=== PATIENT | female | born 1980 | race Caucasian/White ===

== ENCOUNTER 2016-07-14 08:29 | Inpatient (IN) | payer OTHER ==
[~2016-07-14] VITALS: Ht 167.6 cm; Wt 59.9 kg
[2016-07-14 08:30] VITALS: BP 114/71; PULSE 81; RESP 18; TEMP 98.9; O2SAT 98
--- NOTE | 2016-07-14 08:30 | NUR ---
BROUGHT BACK TO BED #6 AND REPORT GIVEN TO GRIFFIN
--- NOTE | 2016-07-14 08:30 | NUR ---
Pt report received from JENIFFER Schilling. 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 Pt unable to recall medical hx during triage. No focal neurodeficits noted at this time.
--- NOTE | 2016-07-14 08:35 | NUR ---
Dr. Richey at bedside to assess pt.
--- NOTE | 2016-07-14 09:00 | NUR ---
# 20 gauge angiocath placed to LAC. Use of asceptic technique. Opsite placed over site. Blood return noted. Blood for lab drawn from site. Flushed with 10 cc of normal saline. No evidence of infiltration noted. Patient tolerated well.
[2016-07-14 09:06] LABS: BASOPHILS % (AUTO) 0.4 % (0.0-2.0); EOSINOPHILS # (AUTO) 0.1 K/uL (0.0-0.4); EOSINOPHILS % (AUTO) 1.1 % (0.0-4.0); HEMATOCRIT 36.3 % (36-48); LYMPHOCYTES # (AUTO) 1.6 K/uL (1.0-5.5); LYMPHOCYTES % (AUTO) 28.7 % (20.5-51.5); MEAN CORPUSCULAR HEMOGLOBIN 30 pg (27-31); MEAN CORPUSCULAR HGB CONC 33 % (32-36); MEAN CORPUSCULAR VOLUME 90 fL (79.0-98.0); MONOCYTES # (AUTO) 0.4 K/uL (0.0-1.0); MONOCYTES % (AUTO) 7.2 % (1.7-9.3); NEUTROPHILS # (AUTO) 3.4 K/uL (1.8-7.7); NEUTROPHILS % (AUTO) 62.6 % (40.0-70.0); PLATELET COUNT (AUTO) 250 K/uL (130-430); RED BLOOD CELL COUNT(AUTO) 4.01 MIL/uL (4.2-6.2); RED CELL DISTRIBUTION WIDTH 11.7 % (9.0-15.0); WHITE BLOOD COUNT (AUTO) 5.5 K/uL (4.8-10.8)
--- NOTE | 2016-07-14 09:20 | NUR ---
Pt to CT via W/C.
[2016-07-14 09:23] LABS: CALCIUM 8.7 mg/dL (8.4-11.0); CREATININE 0.89 mg/dL (0.55-1.30); POTASSIUM 3.7 mmol/L (3.5-5.1)
[2016-07-14 09:26] LABS: INR 1.1 (0.8-1.2)
[2016-07-14 09:27] LABS: TOTAL BILIRUBIN 0.3 mg/dL (0.0-1.0)
--- NOTE | 2016-07-14 09:32 | NUR ---
Pt returns from CT.
[2016-07-14 09:36] LABS: BILIRUBIN,URINE NEGATIVE (NEGATIVE); BLOOD, URINE NEGATIVE (NEGATIVE); CLARITY/URINE CLEAR (CLEAR); COLOR,URINE YELLOW (YELLOW); GLUCOSE,URINE NEGATIVE (NEGATIVE); KETONES,URINE NEGATIVE (NEGATIVE); LEUKOCYTE ESTERASE ,URINE 1+ (NEGATIVE); NITRITE, URINE NEGATIVE (NEGATIVE); PH,URINE 5.5 (5.0-8.0); PROTEIN URINE NEGATIVE (NEGATIVE); UROBILINOGEN,URINE 0.2 (0.2-1.0)
[2016-07-14 09:49] LABS: BACTERIA,URINE RARE /HPF (None Seen); RBC,URINE NONE SEEN /HPF (0-3); WBC,URINE 0-3 /HPF (0-3)
--- NOTE | 2016-07-14 10:01 | NUR ---
No needs verbalized at this time. No neurodeficits noted at this time.
--- NOTE | 2016-07-14 10:25 | NUR ---
Patient will be admitted to care of Dr. Levine. Admitted to Tele unit. Will go to room 135. Belongings list completed. Summary report printed. Bedside report given to receiving RN.
--- NOTE | 2016-07-14 10:28 | NUR ---
Medication reconciliation completed with information provided by patient. Any prior medication reconciliation on file was reviewed and corrected. Pt takes no medications.
--- NOTE | 2016-07-14 10:34 | NUR ---
ADMIT NOTE Received pt from ER to the floor with a diagnosis of TIA. Admission process initiated. patient oriented to pain management, safety and call light-teach back done.
--- NOTE | 2016-07-14 10:35 | NUR ---
Notes Pt in bed awake, alert and oriented. speech clear, denies any pain, dizziness or headache at this time. ambulate with steady gait. denies any numbness or tingling. oriented to call light use and phone. safety precaution observed. v/s stable will monitor.
[2016-07-14 10:36] VITALS: BP 118/66; PULSE 68; RESP 18; TEMP 98.6; O2SAT 100
[2016-07-14 11:00] VITALS: BP 118/66; PULSE 68; RESP 17; TEMP 98.6; O2SAT 100
--- NOTE | 2016-07-14 12:23 | NUR ---
CONSULT CALLED CONSULT, SPOKE WITH ALEKSANDAR Fox Addendum: 07/14/16 at 1225 by Magdalena Elizondo CNA SPOKE WITH ALEKSANDAR AT 1220. REASON FOR CHF
--- NOTE | 2016-07-14 13:20 | NUR ---
notes eating lunch. neuro check done. no complains at this time.
--- NOTE | 2016-07-14 15:37 | NUR ---
notes in bed, family at bedside. no distress noted. neuro check done. stable. no deficits
[2016-07-14 16:00] VITALS: BP 93/62; PULSE 63; RESP 16; TEMP 97.3; O2SAT 98
--- NOTE | 2016-07-14 18:35 | NUR ---
NOTES IN bed eating dinner. denies any pain or discomfort. no neuro deficits noted. no distress. all needs meet. will endorse
[2016-07-14 19:30] VITALS: BP 98/57; PULSE 68; RESP 18; TEMP 98.8; O2SAT 98
--- NOTE | 2016-07-14 19:30 | NUR ---
Initial Notes Pt is A/Ox4, pleasant and cooperative. Pt denies any pain or sob at this time. No slurred speech noted. Bilateral upper and lower extremity strength is strong and even. Pt's smile is symmetrical. VSS. IV intact. Plan of care discussed with patient and pt verbalized understanding. Pt educated implementation analyst light and correct back demonstration noted. Pt was also given direct ext to reach nurse and how to use phone to call. Pt noted to be ambulatory with steady gait at this time. Pt encouraged to call nurse for assistance. All needs met. Call light in hand. Will continue to monitor.
--- NOTE | 2016-07-14 20:19 | NUR ---
PAGED: I PAGED PHY. ASSOCIATE [phone] I SPOKE WITH SCOT GORDON TOUR AGENT
--- NOTE | 2016-07-14 20:22 | NUR ---
Zain Pittman MD at this time. Pt requesting something for headache, and states that she has difficulty sleeping tonight. Will await call back.
--- NOTE | 2016-07-14 20:56 | NUR ---
PAGED: I PAGED PHY. ASSOCIATE [id number] [phone] I SPOKE WITH [facility]CHANGE THIS IS MY SECOND CALL 1ST CALL WAS @ 2018 DR. GORDON CALLED BACK @ 1902
[2016-07-14] MEDS ORDERED: ACETAMINOPHEN 325 MG TABLET PO PRN (21:15)
[2016-07-14] MEDS ORDERED: TEMAZEPAM 15 MG CAPSULE PO PRN (21:15)
--- NOTE | 2016-07-14 21:27 | NUR ---
Sleep Aid/Headache Pt c/o mild headache 05/30 and also requested a sleep aid, stating that she has difficulty sleeping at night when at home. Spoke with MD Levine earlier and new orders for Restoril and Tylenol ordered. Pt medicated with Restoril 15mg PO and Tylenol 650mg PO for pain as ordered. All needs met at this time. Fresh water provided. Call light in hand. Will continue to monitor.
--- NOTE | 2016-07-14 22:34 | NUR ---
Rounds Pt is sleeping at this time. Breathing is even and unlabored. No acute distress noted. Call light in reach. Will continue to monitor.
--- NOTE | 2016-07-15 00:30 | NUR ---
PATIENT RESTING: Patient resting quietly. No acute distress noted. Vital signs within normal range. Call light in hand. Will continue to monitor.
--- NOTE | 2016-07-15 01:52 | NUR ---
CONSULT: CONSULT CALLED FOR DR. SHETTY I SPOKE WITH MATTEO STORM REASON FOR CONSULT: TIA CONSULT ORDERED BY DR. GORDON NUMBER I CALLED [phone]
--- NOTE | 2016-07-15 01:55 | NUR ---
CONSULT: CONSULT CALLED FOR DR. BARKER I SPOKE WITH MATTEO STORM REASON FOR CONSULT: TIA REQUESTING DR. GORDON NUMBER I CALLED [phone]
--- NOTE | 2016-07-15 02:30 | NUR ---
Rounds Pt is sleeping comfortably at this time. No acute distress or sob noted. IV intact. All needs met at this time. Call light in reach. Will continue to monitor.
--- NOTE | 2016-07-15 05:13 | NUR ---
Rounds Patient is sleeping comfortably at this time. No acute distress noted. Call light in reach. Will continue to monitor.
--- NOTE | 2016-07-15 06:28 | NUR ---
Closing Notes Pt is resting. No acute distress noted. Patient denies any pain or discomfort. IV intact. Consent for MRI signed and filed in chart. All needs met throughout shift. Will endorse care to am nurse. Call light within reach. Will continue to monitor.
--- NOTE | 2016-07-15 07:50 | NUR ---
AM ROUNDS Pt A/Ox4, denies pain or discomfort...No deficits noted...Pt with strong equal evening or night nurse supervisor, no facial droop, no slurred speech noted...HL to LAC flushes well...Pt ambulating with steady gait..Pt awaiting echo, carotid, and MRI later today...Ady cont to monitor
[2016-07-15] MEDS ORDERED: ASPIRIN 325 MG TABLET (ECOTRIN) PO SCH (09:00)
--- NOTE | 2016-07-15 09:00 | NUR ---
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
--- NOTE | 2016-07-15 10:44 | NUR ---
ROUNDS PT STABLE..NO CHANGES...WILL CONT TO MONITOR
[2016-07-15 10:45] VITALS: BP 99/54; PULSE 71; RESP 20; TEMP 98.2; O2SAT 100
[2016-07-15 12:25] VITALS: BP 97/57; PULSE 78; RESP 16; TEMP 97; O2SAT 100
--- NOTE | 2016-07-15 12:43 | NUR ---
TRANSPORTED TO MRI VIA PT STABLE UPON TRANSPORT
--- NOTE | 2016-07-15 15:36 | NUR ---
ROUNDS PT STABLE..NO CHANGES..AWAITING NEURO CONSULT...WILL CONT TO MONITOR
[2016-07-15 16:25] VITALS: BP 99/58; PULSE 71; RESP 16; TEMP 97.9; O2SAT 96
--- NOTE | 2016-07-15 16:40 | NUR ---
DR SHETTY CALLED..WANTED US TO CALL EXCHANGE BACK AND PUT CONSULT IN FOR DR SANCHEZ BY CALLING THE EXCHANGE, DR SANCHEZ WILL BE INFORMED OF THE CONSULT... THIS IS THE 3RD CALL REGARDING THIS CONSULT U/S MIMEE WILL REPAGE/RECALL EXCHANGE REGARDING CONSULT
--- NOTE | 2016-07-15 16:44 | NUR ---
MD LARA SPOKE WITH [facility] TO PAGE DR. SANCHEZ OR SENA PER [place].
--- NOTE | 2016-07-15 17:26 | NUR ---
CONSULTATION CALLED REASON FOR CONSULT:TIA WHO WAS NOTIFIED: MARY CONSULTING DR: JOSE SANCHEZ BURL[employer]WER NUMBER: [phone]
[2016-07-15 19:56] VITALS: BP 108/68; PULSE 73; RESP 18; TEMP 98.8; O2SAT 98
== END 2016-07-15 20:26 | disposition home or self-care (01) | DRG 103 ==
LOC: SED 08:29 → STU 10:13 → SMU 07-15 12:28
PROVIDERS: ADMIT Internal Medicine Hospice and Palliative Medicine; ATTEND Internal Medicine Hospice and Palliative Medicine
DX: G43.809 Other migraine, not intractable, without status migrainosus (principal); E04.1 Nontoxic single thyroid nodule; R47.1 Dysarthria and anarthria
CPT/HCPCS: 36415; 70450-TC; 70551; 80053; 80061; 81000-TC; 81025; 84484; 85025; 85610-TC; 85730-TC; 93005; 93306; 93880; 99285